=== PATIENT | female | born 1980 | race African-American/Black ===

== ENCOUNTER 2018-10-01 07:05 | Emergency (ER) | payer MEDICAID ==
[~2018-10-01] VITALS: Ht 172.7 cm; Wt 88.5 kg
--- NOTE | 2018-10-01 07:08 | NUR ---
PT TAKEN TO BED 5
--- NOTE | 2018-10-01 07:15 | NUR ---
PATIENT PRESENTS TO ED WITH C/O BACK PAIN S/P TURNING PT AT WORK. PT STATES, SHE HEARD SOMETHING "POPPED" WHILE TURNING PT AND THAT PAIN INCREASES WITH BREATHING. PAIN OF 9/10 AT THIS TIME; VSS; PATIENT ASSISTED TO A GOWN AND POSITIONED FOR COMFORT; HOB ELEVATED; BEDRAILS UP X1; BED DOWN. PENDING ER MD EVALUATION. HX OF ASTHMA, CHRONIC BRONCHITIS AND ELENA'S THYROIDITIS AND BACK SURGERY FOR DISC DEGENERATIVE DISEASE. ALLERGIES: PHENOBARBITAL.
[2018-10-01 07:16] VITALS: BP 112/84
[2018-10-01] MEDS ORDERED: KETOROLAC 60 MG/2 ML VIAL IM ONE (08:25)
[2018-10-01] MEDS ORDERED: LORazepam 1 MG TAB PO ONE (08:25)
--- NOTE | 2018-10-01 08:34 | NUR ---
XRAY AT BEDSIDE
--- NOTE | 2018-10-01 09:43 | NUR ---
Dr. Uriostegui re-evaluating patient at bedside.
[2018-10-01 10:08] VITALS: BP 114/84
--- NOTE | 2018-10-01 10:08 | NUR ---
Patient discharged with v/s stable. Written and verbal after care instructions given and explained. Patient alert, oriented and verbalized understanding of instructions.All questions addressed prior to discharge. ID band removed. Patient advised to follow up with PMD. Rx of Tramadol, Naprosyn and Flexeril given. Patient educated on indication of medication including possible reaction and side effects. Opportunity to ask questions provided and answered.
== END 2018-10-01 10:05 | disposition home or self-care (01) ==
LOC: MED 07:05
DX: S29.9XXA Unspecified injury of thorax, initial encounter (principal); M62.838 Other muscle spasm; J45.909 Unspecified asthma, uncomplicated; E06.3 Autoimmune thyroiditis; X58.XXXA Exposure to other specified factors, initial encounter; Y93.89 Activity, other specified; Y92.89 Other specified places as the place of occurrence of the external cause; Y99.0 Civilian activity done for income or pay
CPT/HCPCS: 72072; 96372; 99283; J1885